=== PATIENT | male | born 1955 | race Caucasian/White ===

== ENCOUNTER 2021-05-04 13:30 | Outpatient (CLI) | payer OTHER, SELFPAY ==
--- NOTE | ~2021-05-04 | XR_ITS ---
EXAMINATION: XR shoulder LT min 2V DATE: 05/04/2021 14:02 INDICATION: Left shoulder pain. TECHNIQUE: 4 views of left shoulder were obtained. COMPARISON: None. FINDINGS: Bone alignment is normal. No fracture. There is mild osteoarthritis of glenohumeral joint a nd moderate osteoarthritis of acromioclavicular joint. IMPRESSION: 1. Polyarticular osteoarthritis. Reviewed, dictated and finalized at location A.
== END 2021-05-04 13:31 | disposition home or self-care (01) ==
LOC: ANHIMG 13:36
PROVIDERS: PCP Internal Medicine; Visit Provider Internal Medicine
DX: M19.012 Primary osteoarthritis, left shoulder (principal)
CPT/HCPCS: 73030

== ENCOUNTER 2022-06-23 00:47 | Day surgery (SDC) | payer OTHER, SELFPAY ==
[2022-06-04 14:34] VITALS: BMI 34.0
[2022-06-23 11:25] VITALS: BP 143/81; PULSE 87; RESP 18; TEMP 36.3; O2SAT 98; BMI 33.0
[2022-06-23] MEDS: LACTATED RINGERS 1,000 ML 150 ML IV CONT (11:48)
--- NOTE | 2022-06-23 12:04 | PM.HPGS ---
History of Present Illness History of Present Illness Consent: Risks, benefits, and alternatives have been discussed and questions answered. Patient agrees to proceed with procedure. Chief complaint: neoplasm screening Narrative: Torito Hemphill is a 66 year old male Referred for colon cancer screening. Review of Systems Review of Systems: All systems reviewed & are unremarkable except as noted in HPI and below PMFSH Past Medical History Medical History Annual physical exam BMI 34.0-34.9,adult Colon cancer screening Dyslipidemia Encounter for preventive health examination Encounter to establish care Family history of diabetes mellitus History of kidney stones Left shoulder pain Prostate cancer screening Screening for lipid disorders Tinnitus, left ear Vitamin D deficiency Surgical History Surgical History H/O arthroscopic knee surgery Family History Family History Father Lung cancer Diabetes mellitus Mother Lung cancer Thyroid disorder Sibling Asthma Diabetes mellitus Hypertension CAD (coronary artery disease) Acute myocardial infarction Grandparent Melanoma Social History Social History Smoking status: Never smoker Alcohol intake: current Drinks per week: 5 Alcohol use details: Wine/spirits 1-2 drinks 2-3 times/week Substance use type: does not use Living arrangements: with family Spiritual care concerns: No Meds Home Medications and Allergies Home Medications Medication Instructions Recorded Confirmed Type aspirin 81 mg tablet,delayed 81 mg PO DAILY 03/05/22 06/23/22 History release (Adult Low Dose Aspirin) cholecalciferol (vitamin D3) 50 50 mcg PO DAILY 03/05/22 06/23/22 History mcg (2,000 unit) capsule Allergies Allergy/AdvReac Type Severity Reaction Status Date / Time No Known Allergies Allergy Verified 06/23/22 11:35 Vital Signs Vital Signs - 24 hr 06/23/22 11:25 Temperature 36.3 C L Pulse Rate 87 Respiratory Rate 18 Blood Pressure 143/81 H Pulse Oximetry 98 Oxygen Delivery Room Air Exam Resp: Auscultation: clear to auscultation bilaterally Cardio: Rate: regular rate Rhythm: regular rhythm GI: GI Palp: Yes Soft to palpation and No Tenderness to palpation present (GI) Assessment and Plan Assessment and plan (1) Colon cancer screening: Code(s): Z12.11 - Encounter for screening for malignant neoplasm of colon Status: Acute Assessment and Plan: Colonoscopy with possible biopsy or polypectomy or cautery or injection of substances.
--- NOTE | 2022-06-23 12:24 | P.PNAN_ITS ---
Anes - Initial Pre Proc Eval Procedure: Operation Date: 06/23/22 12:30 Proposed Procedures p Screening Colonoscopy - Dallin Wolf MD Date/Time: 06/23/22 12:24 Surgeon: Dallin Wolf MD Pre Op Diagnosis: neoplasm screening Patient Data Age: 66 Gender: M Height: 1.75 m Weight: 101.7 kg Last Vital Signs Temp 97.4 F L 06/23/22 11:25 Pulse 87 06/23/22 11:25 Resp 18 06/23/22 11:25 BP 143/81 H 06/23/22 11:25 Pulse Ox 98 06/23/22 11:25 O2 Del Method Room Air 06/23/22 11:25 Allergies Allergy/AdvReac Type Severity Reaction Status Date / Time No Known Allergies Allergy Verified 06/23/22 11:35 Home Medications Medication Instructions Recorded Confirmed Type aspirin 81 mg tablet,delayed 81 mg PO DAILY 03/05/22 06/23/22 History release (Adult Low Dose Aspirin) cholecalciferol (vitamin D3) 50 50 mcg PO DAILY 03/05/22 06/23/22 History mcg (2,000 unit) capsule Patient hx anesthesia problems: none Family hx anesthesia problems: none Results Review: All pre-operative results and documents have been reviewed as part of the pre- operative evaluation. [facility] Past Medical History Medical History Annual physical exam BMI 34.0-34.9,adult Colon cancer screening Dyslipidemia Encounter for preventive health examination Encounter to establish care Family history of diabetes mellitus History of kidney stones Left shoulder pain Prostate cancer screening Screening for lipid disorders Tinnitus, left ear Vitamin D deficiency Surgical History Surgical History H/O arthroscopic knee surgery Family History Family History Father Lung cancer Diabetes mellitus Mother Lung cancer Thyroid disorder Sibling Asthma Diabetes mellitus Hypertension CAD (coronary artery disease) Acute myocardial infarction Grandparent Melanoma Social History Social History Smoking status: Never smoker Alcohol intake: current Drinks per week: 5 Alcohol use details: Wine/spirits 1-2 drinks 2-3 times/week Substance use type: does not use Living arrangements: with family Spiritual care concerns: No Anes - Eval Final PreProcedure Day of Procedure 06/23/22 12:24 Patient weight: obese Heart: regular rate and rhythm Lungs: clear to auscultation Airway: Mallampati scale class II Neurological: alert and oriented Last oral intake: >/= 8 hours ASA classification: II Emergent: no Anesthetic plan: proceed Results Review: All pre-operative results and documents have been reviewed as part of the pre- operative evaluation. Informed Consent: The patient's anesthetic plan and its attendant risks and benefits were discussed with the patient/family/POA. Questions were solicited and answers provided to the satisfaction of the patient/family/POA.
[2022-06-23 12:45] VITALS: BP 104/66; PULSE 77; RESP 20; O2SAT 96
[2022-06-23 12:55] VITALS: BP 101/68; PULSE 75; RESP 18; O2SAT 96
[2022-06-23 13:05] VITALS: BP 122/79; PULSE 67; RESP 17; O2SAT 98
== END 2022-06-23 13:07 | disposition home or self-care (01) ==
PROVIDERS: PCP Internal Medicine; Visit Provider Internal Medicine Gastroenterology
PROC: 0DJD8ZZ Inspection of Lower Intestinal Tract, Via Natural or Artificial Opening Endoscopic (ICD-10-PCS; CPT 45378; principal; 2022-06-23 12:30)
DX: Z12.11 Encounter for screening for malignant neoplasm of colon (principal); K57.30 Diverticulosis of large intestine without perforation or abscess without bleeding; E78.5 Hyperlipidemia, unspecified; E55.9 Vitamin D deficiency, unspecified
CPT/HCPCS: 45378; J1100; J2704; J7120